=== PATIENT | female | born 1960 | race Caucasian/White ===

== ENCOUNTER 2019-11-20 17:32 | Emergency (ER) | payer OTHER, SELFPAY ==
[2019-11-20 17:38] VITALS: BP 108/77; PULSE 102; RESP 20; TEMP 36.7; O2SAT 100
--- NOTE | 2019-11-20 18:29 | ED.DENTAL ---
HPI - Dental/Oral General Chief complaint: Dental/Oral Stated complaint: tooth pain Time Seen by Provider: 11/20/19 17:54 Source: patient and RN notes reviewed Mode of arrival: ambulatory Limitations: no limitations History of Present Illness HPI Narrative: Patient presents today complaining broken right upper tooth x2 weeks. This tooth is not very painful but is sensitive to cold and hot. States that over the past week she has developed severe anterior tongue pain. She has been using peroxide and salt water as well as Tylenol without relief. She does not have a dentist. States she has not been very hungry due to her tongue pain. She does not smoke or drink alcohol. Related Data Home Medications Medication Instructions Recorded Confirmed gabapentin 11/20/19 irbesartan-hydrochlorothiazide tablet 11/20/19 meloxicam 11/20/19 oxybutynin chloride 11/20/19 Allergies Allergy/AdvReac Type Severity Reaction Status Date / Time Penicillins Allergy Unknown Verified 02/21/10 11:39 Review of Systems Review of Systems: Narrative: CONSTITUTIONAL: Denies body aches, fever, chills, or sweats. EYES: Denies visual changes, redness, or discharge. ENT: Denies rhinorrhea, congestion, sore throat, or otalgia.+ Tooth pain, tongue pain CARDIOVASCULAR: Denies chest pain, palpitations, or edema. RESPIRATORY: Denies cough or dyspnea. GASTROINTESTINAL: Denies abdominal pain, nausea, vomiting, or diarrhea. GENITOURINARY: Denies dysuria or hematuria. SKIN: Denies rash, itching, or wounds. MUSCULOSKELETAL: Denies back pain, joint pain, or myalgia. NEUROLOGIC: Denies headache, numbness, tingling, or weakness. PSYCH: Denies depression or anxiety. [facility] Family History Family History (Updated 09/07/15 @ 23:19 by DOCTOR UNKNOWN) Grandparent Family history of malignant neoplasm of breast Social History Social History Smoking status: Never smoker Alcohol intake: current Comments At time of signature, I have reviewed and agree with nursing past medical, surgical, social and family history unless otherwise noted. Please see nursing chart for further information. There is no relevant family history pertinent to the presenting complaint Exam Narrative: Exam Narrative: GENERAL: Well-appearing, well-nourished, and in no acute distress. HEAD: Normocephalic, atraumatic. EYES: EOMI. No redness or drainage. Conjunctivae normal. ENT: Mucous membranes pink and moist. Nares clear. No rhinorrhea. TMs normal bilaterally. Throat normal. Thin white coating to the posterior aspect of her tongue. Prominent papillae to the posterior portion of the tongue, however, this is not the painful area. Painful area to the anterior tongue appears grossly normal. Tooth #2 is fractured. No obvious periapical abscess noted. Uvula midline. NECK: Normal AROM. Supple. No lymphadenopathy. CHEST: No respiratory distress. Clear to auscultation. HEART: Regular rate and rhythm. No murmur appreciated. Normal peripheral pulses. EXTREMITIES: Normal range of motion. No edema. SKIN: Warm, dry, no rash. Capillary refill normal. Normal skin turgor. NEURO: No focal deficits. Alert and oriented x3. Gait steady. PSYCH: Normal affect. No signs of depression or anxiety. Course Vital Signs Vital signs: Vital Signs Temperature 98.1 F 11/20/19 17:38 Pulse Rate 102 H 11/20/19 17:38 Respiratory Rate 11/20/19 17:38 Blood Pressure 108/77 11/20/19 17:38 Pulse Oximetry 100 11/20/19 17:38 Temperature 98.1 F 11/20/19 17:38 Pulse Rate 102 H 11/20/19 17:38 Respiratory Rate 11/20/19 17:38 Blood Pressure 108/77 11/20/19 17:38 Pulse Oximetry 100 11/20/19 17:38 Reviewed MDM - Dental/Oral Differential Diagnosis Differential diagnosis: Likely gingival abscess, dental caries, toothache, dental abscess, fracture of tooth and other (Leukoplakia, lichen planus, candidiasis) Critical Care Time Critical Care Time Critical Care Time
== END 2019-11-20 18:40 | disposition home or self-care (01) ==
PROVIDERS: Emergency Provider Nurse Practitioner; PCP Emergency Medicine
DX: S02.5XXA Fracture of tooth (traumatic), initial encounter for closed fracture (principal); X58.XXXA Exposure to other specified factors, initial encounter; K14.6 Glossodynia
CPT/HCPCS: 99213; G0463

== ENCOUNTER 2020-01-11 15:09 | Outpatient (CLI) | payer OTHER, SELFPAY ==
--- NOTE | ~2020-01-11 | US_ITS ---
EXAMINATION:US venous doppler LE RT INDICATION:Right groin and knee pain TECHNIQUE: Multiple grayscale, color flow and Doppler images of the right lower extremity deep venous systems were obtained and reviewed. COMPARISON:No prior studies for comparison. FINDINGS: The common femoral, superficial femoral and popliteal veins demonstrate normal respiratory variation, augmentation and compressibility. Color flow is also seen within the posterior tibial, pe roneal, greater saphenous and profunda veins. There is deep venous thrombosis of the right gastrocnem ius vein. IMPRESSION: 1: Deep venous thrombosis of the right gastrocnemius vein. Dr. Martinez discussed with Dr. Adarsh Newman MD at 01/11/2020 16:02 DOCTOR OF [facility]UROPATH[facility]IC[facility]. Reviewed, dictated and finalized at location B. OR [facility]IC[facility]
== END 2020-01-11 15:10 | disposition home or self-care (01) ==
PROVIDERS: PCP Emergency Medicine; Visit Provider Emergency Medicine
DX: I82.461 Acute embolism and thrombosis of right calf muscular vein (principal)
CPT/HCPCS: 93971

== ENCOUNTER 2020-06-13 13:00 | Outpatient (CLI) | payer OTHER, SELFPAY ==
--- NOTE | ~2020-06-13 | US_ITS ---
EXAMINATION: US venous doppler LE RT DATE: 06/13/2020 13:32 INDICATION: Lower limb swelling, history of deep venous thrombosis TECHNIQUE: Sung scale images without and with compression and Doppler images of the right lower extre mity veins were obtained. COMPARISON: 01/11/2020 FINDINGS: The right common femoral vein, profunda femoral vein, femoral vein, popliteal vein, peronea l trunk, posterior tibial veins, and greater saphenous vein are patent. Previously described gastrocn emius vein thrombosis has resolved. IMPRESSION: 1. Patent right lower extremity veins. No evidence of deep venous thrombosis. Reviewed, dictated and finalized at location A.
== END 2020-06-13 13:01 | disposition home or self-care (01) ==
PROVIDERS: PCP Emergency Medicine; Visit Provider Emergency Medicine
DX: I82.401 Acute embolism and thrombosis of unspecified deep veins of right lower extremity (principal)
CPT/HCPCS: 93971

== ENCOUNTER 2021-05-02 14:47 | Outpatient (CLI) | payer OTHER, SELFPAY ==
--- NOTE | ~2021-05-02 | CT_ITS ---
EXAMINATION: CT soft tissue neck w con EXAM DATE: 05/02/2021 15:17 INDICATION: Lymphadenopathy, Neck Mass Left. TECHNIQUE: Spiral CT of the neck was performed following intravenous injection of 75 mL Omnipaque 350 . Axial, coronal and sagittal images were reviewed. The dose-length product (DLP) for this examinat ion was 472.23 mGy-cm. The exposure was tailored according to patient size (auto mA exposure control ), and iterative reconstruction (ASIR) was used as additional dose reduction technique. There is no prior study for comparison. FINDINGS: There is enlargement of the left palatine tonsil, which measures about 2 cm in diameter. L evel 2 lymph node in the left internal jugular chain measuring 2.7 x 3.2 cm in greatest axial dimensi ons. The next largest lymph node located below this deep to the sternocleidomastoid measuring 1.1 x 0 .8 cm. The thyroid gland is unremarkable. The submandibular and parotid glands are symmetric. The superi or mediastinum is unremarkable. The airway is unremarkable. Parapharyngeal and pre-glottic fat pl anes are preserved. Some mass effect on the left internal jugular vein, no thrombosis. The orbits are unremarkable. Visualized sinuses and mastoid air cells are well aerated. Lung apices unremarkab le. Moderate to severe C5-6 and 6-7 disc disease. IMPRESSION: Enlarged left palatine tonsil and left internal jugular chain lymph node(s). Differential diagnosis includes squamous cell cancer with metastatic disease, lymphoma. Histologic correlation. Reviewed, dictated and finalized at location G.
[2021-05-02 15:10] LABS: Estimated Glomerular Filt Rate 42
== END 2021-05-02 14:48 | disposition home or self-care (01) ==
LOC: ANHIMG 14:51
PROVIDERS: PCP Emergency Medicine; Visit Provider Emergency Medicine
DX: R59.1 Generalized enlarged lymph nodes (principal); J35.1 Hypertrophy of tonsils
CPT/HCPCS: 70491; Q9967

== ENCOUNTER 2021-05-20 10:14 | Outpatient (CLI) | payer OTHER, SELFPAY ==
--- NOTE | ~2021-05-20 | US_ITS ---
. EXAMINATION: US biopsy lymph node DATE: 05/20/2021 11:39 INDICATION: Left internal jugular chain lymphadenopathy. TECHNIQUE: The procedure including the risks, benefits, and alternatives was discussed with the patie nt. Risks discussed included bleeding and infection. The patient understood the risks and agreed to p roceed. The skin overlying the left neck was prepped and draped in usual sterile fashion. Anesthetic was administered with 1% lidocaine subcutaneously. An 18 gauge core biopsy needle was then used to obtain 6 core biopsy specimens under continuous sonographic guidance. The entry site was cleaned and dressed. There were no immediate complications. FINDINGS: Ultrasound images demonstrate the needle in a 4.3 x 3.6 x 2.1 cm left high internal jugular chain lymph node. IMPRESSION: 1. Ultrasound-guided core needle biopsy of an enlarged left high internal jugular chain lymph node. Reviewed, dictated and finalized at location A. IMPRESSION: 1. Ultrasound-guided core needle biopsy of an enlarged left high internal jugul ar chain lymph node.
== END 2021-05-20 10:15 | disposition home or self-care (01) ==
LOC: ANHIMG 10:16
PROVIDERS: PCP Emergency Medicine; Visit Provider Surgery
DX: C80.1 Malignant (primary) neoplasm, unspecified (principal); C77.0 Secondary and unspecified malignant neoplasm of lymph nodes of head, face and neck
CPT/HCPCS: 38505; 76942; 88184; 88305; 88342